=== PATIENT | male | born 1945 | race Asian ===

== ENCOUNTER 2024-08-17 06:16 | Day surgery (SDC) | payer OTHER ==
[2024-08-14 14:29] VITALS: BMI 30.5
[2024-08-17 09:19] VITALS: TEMP 98
[2024-08-17 09:25] VITALS: PULSE 64
[2024-08-17 10:04] VITALS: BP 129/68; RESP 18
== END 2024-08-17 10:05 | disposition home or self-care (01) ==
LOC: JASU-ENDO 06:16
PROVIDERS: ATTEND Student in an Organized Health Care Education/Training Program
PROC: 0DB78ZX Excision of Stomach, Pylorus, Via Natural or Artificial Opening Endoscopic, Diagnostic (ICD-10-PCS; 2024-08-17)
PROC: 0DB68ZX Excision of Stomach, Via Natural or Artificial Opening Endoscopic, Diagnostic (ICD-10-PCS; principal; 2024-08-17 08:30)
DX: K29.50 Unspecified chronic gastritis without bleeding (principal); I10 Essential (primary) hypertension
CPT/HCPCS: 88305-TC; 88342-TC